=== PATIENT | male | born 1950 | race Caucasian/White ===

== ENCOUNTER 2018-10-16 14:43 | Day surgery (SDC) | payer MEDICARE, BC ==
[~2018-10-16] VITALS: Ht 188 cm; Wt 91.9 kg
[2018-10-16] MEDS ORDERED: ONDANSETRON 4MG/2ML VIAL (J2405) IV ONE (15:15)
[2018-10-16] MEDS ORDERED: NS 1,000 ML IV SCH ×2 (15:15→15:39)
[2018-10-16] MEDS ORDERED: MORPHINE 4 MG/ML 1ML VIAL/SYRINGE (J2270) IV PRN ×2 (15:15→23:15)
--- NOTE | 2018-10-16 15:45 | REP ---
Clinical: Trauma. Preoperative assessment . Comparison: None . Findings: The mediastinum and cardiac silhouette are stable and within normal limits for portable technique. The lung chang are clear without acute consolidation, effusion, or pneumothorax. Skeletal structures are intact. Impression: No acute cardiopulmonary process appreciated. Electronically Signed by Suhas Pope MD 10/16/2018 03:36 P
--- NOTE | 2018-10-16 15:45 | REP ---
Clinical: Trauma. Slip sinus. Technique: Portable AP, lateral, bilateral oblique views of the left ankle. Findings: Fracture dislocation at the ankle is appreciated including posterior angulated fracture of the distal fibula and posterior malleolus fracture as well as anterior dislocation of the distal tibia / fibula in relation to the talus. Surrounding soft tissue swelling noted. Impression: Comminuted fracture dislocation. Electronically Signed by Suhas Pope MD 10/16/2018 03:36 P
[2018-10-16] MEDS: PROPOFOL 200 MG/20 ML VIAL IV PRN ×2 (16:03→16:04)
--- NOTE | 2018-10-16 16:50 | REP ---
Left ankle: Two views obtained portably. History: Post reduction. Comparison is made with earlier film showing a trimalleolar fracture dislocation. Findings: AP and lateral views demonstrate improvement in the tibiotalar articulation, however, there is still posterior subluxation on the lateral film. Posterior tibial and distal fibular fractures are seen. Impression: Improvement in position. Persistent posterior subluxation on lateral film. Electronically Signed by Gen Luna MD 10/17/2018 01:29 P
[2018-10-16 17:11] LABS: HEMATOCRIT 40.7 % (42.0-52.0); HEMOGLOBIN 13.8 g/dl (13.5-17.5); MEAN CORPUSCULAR HGB CONC 33.9 g/dl (32.0-36.5); MEAN CORPUSCULAR VOLUME 88.5 fl (80.0-96.0); PLATELET COUNT, AUTOMATED 195 10^3/uL (150-450); WHITE BLOOD COUNT 9.4 10^3/uL (4.0-10.0)
[2018-10-16] MEDS ORDERED: ATOR40TA75 PO (17:12)
[2018-10-16] MEDS ORDERED: MULT1TAB28 PO (17:12)
[2018-10-16] MEDS ORDERED: ASPI81TA26 PO (17:12)
[2018-10-16] MEDS ORDERED: QUIN20TA26 PO (17:12)
[2018-10-16] MEDS ORDERED: AMLO5TAB6 PO (17:12)
[2018-10-16] MEDS ORDERED: OMEG10002 PO (17:12)
[2018-10-16] MEDS ORDERED: VITA500C24 PO (17:12)
[2018-10-16] MEDS ORDERED: ALLE12TA31 PO (17:12)
[2018-10-16] MEDS ORDERED: LEVO125T41 PO (17:12)
[2018-10-16] MEDS ORDERED: REST0.05 OU (17:12)
[2018-10-16 17:43] LABS: BLOOD UREA NITROGEN 17 MG/DL (7-18); CALCIUM LEVEL 8.4 MG/DL (8.8-10.2); CARBON DIOXIDE LEVEL 30 MEQ/L (21-32); CHLORIDE LEVEL 105 MEQ/L (98-107); CREATININE FOR GFR 0.91 MG/DL (0.70-1.30); GLOMERULAR FILTRATION RATE > 60.0 (>49); GLUCOSE, FASTING 102 MG/DL (70-100); POTASSIUM SERUM 3.3 MEQ/L (3.5-5.1); SODIUM LEVEL 141 MEQ/L (136-145)
[2018-10-16] MEDS ORDERED: fentaNYL 100 MCG/2 ML INJECTION (J3010) As Ordered ONE ×2 (19:10→20:33)
[2018-10-16] MEDS ORDERED: MIDAZOLAM INJ 2 MG/2 ML VIAL (J2250) As Ordered ONE (19:10)
[2018-10-16] MEDS ORDERED: PROPOFOL 200 MG/20 ML VIAL As Ordered ONE ×2 (19:11→21:28)
[2018-10-16] MEDS ORDERED: LIDOCAINE 2% INJ 100 MG/5 ML SDV (FOR ANES.) As Ordered ONE (19:12)
[2018-10-16] MEDS ORDERED: ROCURONIUM BROMIDE 50 MG/5 ML VIAL As Ordered ONE (19:12)
[2018-10-16] MEDS ORDERED: ONDANSETRON 4MG/2ML VIAL (J2405) As Ordered ONE (19:13)
[2018-10-16] MEDS ORDERED: dexameTHASONE 4 MG/ML 1ML VIAL (J1100) As Ordered ONE (19:14)
[2018-10-16] MEDS ORDERED: ceFAZolin 1GM INJ (J0690 PER 500MG) As Ordered ONE (19:58)
[2018-10-16] MEDS ORDERED: BUPIVACAINE/EPIN 0.25% 30 ML VIAL As Ordered ONE (19:58)
--- NOTE | 2018-10-16 20:04 | ECGEPIP ---
Stationary ECG Study [facility] - ED Test Date: 2018-10-16 Pat Name: ROXANNA MCKENNA Department: Room: - Gender: M Thread Weaver: LORAINE : 1950 Requested By: Duarte Hayes Order Number: [id number] Reading MD: Nadia Mcbride Measurements Intervals [place] Rate: 75 P: 65 WI: 203 QRS: 45 QRSD: 100 T: 117 QT: 403 QTc: 450 Interpretive Statements SINUS RHYTHM ST DEVIATION AND MODERATE T-WAVE ABNORMALITY, CONSIDER ISCHEMIA, CLINICAL CORRELATION NO PRIOR FOR COMPARISON Electronically Signed On 10-16-2018 20:03:59 EDT by Nadia Mcbride
[2018-10-16] MEDS ORDERED: ceFAZolin 2 GM/D5W 50 ML IV BAG (J0690 PER 500MG) As Ordered ONE (20:23)
[2018-10-16] MEDS ORDERED: ePHEDrine SULFATE 25 MG/5 ML(5MG/ML) SYRINGE As Ordered ONE (20:45)
[2018-10-16] MEDS ORDERED: PHENYLephrine HCL 500 MCG/5 ML (100MCG/ML) SYRINGE (J2370) As Ordered ONE (21:33)
[2018-10-16] MEDS ORDERED: SUGAMMADEX SODIUM 500 MG/5 ML VIAL (BRIDION) As Ordered ONE (21:57)
[2018-10-16] MEDS ORDERED: fentaNYL 100 MCG/2 ML INJECTION (J3010) IV PRN (22:45)
[2018-10-16] MEDS ORDERED: PERCOCET 5MG/325MG TAB PO PRN ×3 (22:45→23:15)
[2018-10-16] MEDS ORDERED: METOCLOPRAMIDE INJ 10MG/2ML VIAL (J2765) IV PRN (22:45)
[2018-10-16] MEDS ORDERED: LR 1,000 ML IV SCH (22:45)
[2018-10-16] MEDS ORDERED: ONDANSETRON 4MG/2ML VIAL (J2405) IV PRN (22:45)
[2018-10-16] MEDS ORDERED: PERCOCET 5MG/325MG TAB As Ordered ONE (22:56)
[2018-10-16] MEDS ORDERED: D5W/LR 1,000 ML IV SCH (23:00)
[2018-10-16] MEDS ORDERED: PROMETHAZINE INJ 25 MG/ML VIAL (J2550) IV PRN (23:15)
[2018-10-16 23:40] VITALS: BP 136/84
[2018-10-17] VITALS (7 sets, daily range): BP systolic 122–142; BP diastolic 72–83
[2018-10-17] MEDS ORDERED: ASPI-1 PO (07:08)
[2018-10-17] MEDS ORDERED: PERC5TAB12 PO (07:08)
--- NOTE | 2018-10-17 07:24 | RO ---
DATE OF PROCEDURE: 10/16/2018 PREOPERATIVE DIAGNOSIS: Left ankle fracture dislocation. POSTOPERATIVE DIAGNOSIS: Left ankle fracture dislocation. Specific findings include fracture of lateral malleolus, fracture posterior malleolus, dislocation of the ankle. PROCEDURE PERFORMED: Open reduction internal fixation of left ankle fracture dislocation specifically open reduction internal fixation of the fibula / lateral malleolus and fixation of the posterior malleolar fragment. SURGEON: Dr. Osmany Zurita. ANESTHESIA: General, Dr. Pete. ESTIMATED BLOOD LOSS: Less than 100 mL. No tourniquet was required. No complications. INDICATIONS Fracture dislocation of the ankle. Consent reviewed in detail as outlined in history of present illness. COMPONENTS USED: Include a one-third, two-third seven hole plate, the appropriate cortical and cancellus screws and AP shaft screw and a single cannulated 50 mm 4.0 screw and washer. OPERATIVE COURSE: Identified in holding area, site side verified, brought to the operating room. Once anesthesia was administered, positioned for exposure of the left lower extremity. Bump under the hip. No tourniquet was inflated but a tourniquet was high on the left side, it was not inflated. Once he was prepped, draped in the usual fashion, we began the procedure. I exposed the lateral malleolus. I outlined incision with a marking pen, infiltrated with 0.25% Marcaine with epinephrine, made incision with a 10 blade, developed down through skin and subcuticular tissues to the surface of the fracture at the lateral malleolus. The fracture was exposed. There was significant comminution. The fracture site was irrigated and some small fragments were removed. I did reduce the fracture with a fracture reduction clamp, was able to hold it into place. Next an AP lag screw was drilled in place. I chose cortical shaft screw which was tapped. Next, this effectively reduced the fibula provisionally. We obtained AP lateral mortis films. Posterior malleolar fragment did appear to be a bit bigger than I had anticipated on the initial x-rays. Next, I obtained a seven hold one-third tubular plate to finish securing the fibula. The one-third tubular plate was contoured and then installed using the appropriate cortical and cancellus screws. We then obtained AP lateral mortis films. I felt that there still might be some instability at the posterior malleolus. Next I was able to digitally palpate the fracture site of the posterior malleolus and move it to improve position with my thumb. Then I did utilize a boyle elevator to also implement this motion and reduction. Next, I obtained a guidewire for the cannulated screw set. I made a small incision, anterior to the medial malleolus, spread with a Mosquito and placed the guidewire on the anterior tibia, advanced it through the posterior malleolar fragment while I held it reduced. Next, once this was accomplished, I measured off the guidewire, selected and placed a 50 mm cannulated screw with a washer. There appeared to be improvement in alignment of the posterior malleolar fragment. Next, final fluoroscopy AP lateral mortis. Next, irrigation accomplished, subcuticular stitch utilized to close dermis. Beba utilized on skin. Sterile dressing applied. Short-leg cast applied. Patient extubated, moved to recovery room in good condition. For further details, please refer to the medical record.
--- NOTE | 2018-10-17 07:32 | REP ---
Clinical: Fracture. Technique: Intraoperative fluoroscopic imaging using portable C-arm technique. Findings: Multiple intraoperative images demonstrate the patient to be status post satisfactory open reduction and fixation for ankle fractures. Impression: As post satisfactory open reduction and fixation. Electronically Signed by Suhas Pope MD 10/16/2018 10:36 P
[2018-10-17] MEDS ORDERED: QUINAPRIL 20 MG TAB PO SCH (09:00)
[2018-10-17] MEDS ORDERED: amLODIPine 5 MG TAB PO SCH (09:00)
[2018-10-17] MEDS ORDERED: ASPIRIN 325 MG TAB PO SCH (09:00)
[2018-10-17] MEDS ORDERED: ASCORBIC ACID 500 MG TAB PO SCH (09:00)
[2018-10-17] MEDS ORDERED: hydroCHLOROthiazide 12.5 MG CAPSULE PO SCH (09:00)
--- NOTE | 2018-10-17 09:36 | REP ---
Left ankle: Four views: History: Postop. Findings: Four views left ankle through overlying plaster document open reduction internal fixation of left ankle fracture dislocation. The anteroposterior distal tibial screw is noted in place and there is a distal fibular screw plate fixation device. Ankle mortise is intact. Alignment is anatomic. Electronically Signed by Gen Luna MD 10/17/2018 01:32 P
--- NOTE | 2018-10-17 21:33 | CR ---
DATE OF CONSULTATION: 10/16/2018 HISTORY OF PRESENT ILLNESS: 68-year-old gentleman was seen at the request of the emergency room (ER) Dr. Morales to evaluate his left lower extremity. The patient had been exercising at [employer], running up and down stairs apparently with back pack and lost his footing on some icy ground, took a spill and broke his ankle. He had been training for a 200 mile event in the [facility]. He had considerable ankle deformity, was brought in for further evaluation by [facility] ([facility]). He had a closed reduction in the emergency room (ER) by Dr. Morales with splinting, which reflected a persisting posterior dislocations with lateral malleolus and posterior malleolus fracture. ALLERGIES: No known allergies. MEDICAL HISTORY: Includes hypothyroidism, hypertension and hypercholesterolemia. PAST SURGICAL HISTORY: Includes clavicle fracture, cholecystectomy. SOCIAL HISTORY: Does not smoke. MEDICATIONS: Amlodipine, quinapril, hydrochlorothiazide, thyroid medicine, statin. FAMILY HISTORY: He is accompanied here today by a supportive spouse. He lives in [place]. He has family here [place]. He may be leaving the area within the next one week. CLINICAL EXAMINATION: Alert, oriented and cooperative. Mood and affect are appropriate. He appears to be his stated age or a bit younger, healthy skin. Upper and lower extremities: Left lower extremity elevated splinted. Sensate, warm palpable dorsalis pedis palpable. No effusion at the knee. No tenderness at the hip with rotation. Contralateral side appears to be uninvolved. The patient seems to be normocephalic, atraumatic, not distressed, quite conversant. No shortness of breath. No abdominal distension. IMAGING STUDIES: Reflect ankle fracture-dislocation as outlined above. Posterior malleolar fragment and fibula. IMPRESSION: Ankle fracture-dislocation, lateral malleolus and posterior malleolus RECOMMENDATIONS: I talked to the patient frankly. The post reduction is still dislocated. I have recommended open reduction, internal fixation of the fibula and possibly the posterior malleolus. We did complete a preoperative packet including a short-form history and physical, as well as a consent document, which involved perfecto discussion of the pathology involved, the procedure proposed, alternatives including doing nothing, risks including, but not limited to pain, failure, the need for more surgery, infection, blood clots and other issues. The patient also asked specifically if the hardware needed to be removed and was informed that the hardware is not normally removed, but sometimes if the hardware is causing discomfort, it is removed. He agreed to proceed. Coordinated with the emergency room (ER), operating room and anesthesiologist. Anticipate he will go home tomorrow after he clears physical therapy and crutches.
== END 2018-10-17 11:20 | disposition home or self-care (01) ==
LOC: M ED 14:43 → EDBD 14:43 → M SDC 16:10 → M MS5PR 23:56 → M SDC 10-17 11:20
PROVIDERS: ATTEND Orthopaedic Surgery
DX: S93.05XA Dislocation of left ankle joint, initial encounter (principal); S82.852A Displaced trimalleolar fracture of left lower leg, initial encounter for closed fracture; W00.1XXA Fall from stairs and steps due to ice and snow, initial encounter; Y92.830 Public park as the place of occurrence of the external cause; Y93.02 Activity, running; Y99.9 Unspecified external cause status; E03.9 Hypothyroidism, unspecified; I10 Essential (primary) hypertension; E78.00 Pure hypercholesterolemia, unspecified; Z79.899 Other long term (current) drug therapy
CPT/HCPCS: 27823; 71045; 73600; 73610; 80048; 85027; 93005; 93041; 94760; 97116; 97161; 99285; C1713; J0690; J1100; J2250; J2270; J2370; J2405; J3010